=== PATIENT | female | born 1950 | race Caucasian/White ===

== ENCOUNTER → 2023-07-18 | Day surgery (SDC) | payer MEDICARE, BC ==
[2023-07-11 16:29] LABS: PRE OP HEMOGLOBIN 14.5 g/dL (12.0-16.0); RED CELL DISTRIBUTION WIDTH 13.3 % (11.5-14.5)
[2023-07-11 16:31] LABS: BASOPHILS # (AUTO) 0.1 X10'3 (0-0.2); EOSINOPHILS # (AUTO) 0.1 X10'3 (0-0.9); EOSINOPHILS % (AUTO) 1.5 % (0-6); LYMPHOCYTES # (AUTO) 3.2 X10'3 (1.1-4.8); LYMPHOCYTES % (AUTO) 40.5 % (21-51); MEAN CORPUSCULAR HEMOGLOBIN 30.7 PG (27.0-31.0); MEAN CORPUSCULAR HGB CONC 33.7 g/dL (33.0-36.5); MEAN CORPUSCULAR VOLUME 91.2 FL (78-98); MEAN PLATELET VOLUME 7.5 FL (7.4-10.4); MONOCYTES # (AUTO) 0.6 X10'3 (0-0.9); MONOCYTES % (AUTO) 7.5 % (2-12); NEUTROPHILS # (AUTO) 3.9 X10'3 (1.8-7.7); NEUTROPHILS % (AUTO) 49.5 % (42-75); PRE OP HEMATOCRIT 43.1 % (35.0-45.0); PRE OP PLATELET COUNT 343 X10'3 (140-440); RED BLOOD COUNT 4.73 X10'6 (4.20-5.60)
[2023-07-11 16:42] LABS: ALBUMIN 3.6 G/DL (3.4-5.0); ALBUMIN/GLOBULIN RATIO 1.1 (1.1-1.5); ALKALINE PHOSPHATASE 74 IU/L (46-116); BLOOD UREA NITROGEN 10 MG/DL (7-18); BUN/CREATININE RATIO 10.6 (10.0-20.0); CHLORIDE 104 MMOL/L (99-107); CREATININE 0.94 MG/DL (0.40-0.90); PRE OP ALT 22 U/L (30-65); PRE OP ANION GAP 8 (8-16); PRE OP AST 19 U/L (10-37); PRE OP BILIRUB, TOTAL 0.3 MG/DL (0.0-1.0); PRE OP GLUCOSE 101 MG/DL (70-104); PRE OP POTASSIUM 3.9 MMOL/L (3.4-5.1); PRE OP SODIUM 139 MMOL/L (135-145); TOTAL CARBON DIOXIDE 26.6 MMOL/L (24-32); TOTAL PROTEIN 6.9 G/DL (6.4-8.2); eGFR 59 ML/MIN
[2023-07-18] VITALS (8 sets, daily range): BP systolic 111–126; BP diastolic 60–70; PULSE 70–88; RESP 11–16; TEMP 98.1; O2SAT 94–99
[~2023-07-18] VITALS: Ht 157.5 cm; Wt 79.0 kg
[~2023-07-18] MED LIST: ASPI-611 PO; BUPIVAcaine/PF 2.5mg/ml (0.25%) 10ml vial ONE; BUPR300T86 PO; CHOL50004 PO; DILT180C76 PO; ESTR1TAB28 PO; EZET10TA48 PO; FEXO1TAB8 PO; INDOCYANINE GREEN 25 MG/10 ML VIAL IV ONE; LEVO75TA7 PO; LIDOcaine 1% 30ml preserv. free vial ONE; LOSA25TA41 PO; PITA4TAB2 PO; acetaminophen 1,000mg/100ml IV 100 ML IV ONE; cefazolin 2gm/D5W 100mL 100 ML IV ONE; dexamethasone sod phosphate 4mg/ml inj. ONE; famotidine 20mg tablet PO ONE; fentaNYL/PF 50MCG/1 ML 2ML syringe ONE; glycopyrrolate 0.2mg/ml inj ONE; meperidine/PF 25mg/ml syringe IV PRN; midazolam 1 mg/ML 2ml injection ONE; morphine 2 MG/ML inj. syringe IV PRN; morphine 4 MG/ML inj SYRINge IV PRN; neostigmine methylsulfate 1 MG/ML 10ml vial ONE; ondansetron/PF 4mg/2ml inj IV PRN; ondansetron/PF 4mg/2ml inj ONE; oxyCODONE/APAP 5-325mg tablet PO PRN; proCHLORperazine 10 MG/2 ml inj IV PRN; propofol inj 20 ML IV ONE; ringers solution, lacted 1,000 ML IV SCH; rocuronium 10mg/ml inj IV ONE; sevoflurane 250ml liquid IH ONE
--- NOTE | 2023-07-18 08:38 | NUR ---
Received from OR via [facility] , accompanied by Anesthesiologist TOMY and report given by Anesthesiolgist. PATIENT WITH 20G PIV IN RIGHT UE RUNNING LR AT 100. PATIENT WITH 3 ABDOMINAL BANDAIDS PRESENT WITH NO DRAINAGE. PATIENT VSS AT THIS TIME. Addendum: 07/18/23 at 0901 by Farhan Knutson RN, RN Amended: Links added.
--- NOTE | 2023-07-18 09:38 | NUR ---
ABLE TO SAFELY AMBULATE AND TRANSFER SELF. IV TAKEN OUT WITHOUT ANY COMPLICATIONS. ALL DISCHARGE INSTRUCTIONS COVERED WITH PATIENT AND ALL QUESTIONS ANSWERED. PATIENT TAKEN OUT VIA WHEELCHAIR TO PERSONAL VEHICLE WHERE FAMILY/FRIEND DROVE PATIENT HOME. DAUGHTER AND PATIENT RECEIVED DISCHARGE INSTRUCTIONS AND ALL QUESTIONS ANSWERED. NAUSEA AND PAIN TOLERABLE AT THIS TIME. Addendum: 07/18/23 at 0952 by Farhan Knutson RN, RN Amended: Links added.
== END | disposition home or self-care (01) ==
LOC: PAS 05:37
PROVIDERS: ATTEND Surgery
DX: K80.10 Calculus of gallbladder with chronic cholecystitis without obstruction (principal); K43.2 Incisional hernia without obstruction or gangrene; E03.9 Hypothyroidism, unspecified; E78.5 Hyperlipidemia, unspecified; I10 Essential (primary) hypertension; F41.9 Anxiety disorder, unspecified; F32.A Depression, unspecified; Z79.82 Long term (current) use of aspirin; Z79.899 Other long term (current) drug therapy; Z90.710 Acquired absence of both cervix and uterus; Z98.890 Other specified postprocedural states; Z72.89 Other problems related to lifestyle; Z86.73 Personal history of transient ischemic attack (TIA), and cerebral infarction without residual deficits; Z85.43 Personal history of malignant neoplasm of ovary; Z83.3 Family history of diabetes mellitus; Z80.7 Family history of other malignant neoplasms of lymphoid, hematopoietic and related tissues
CPT/HCPCS: 36415; 47563; 49593; 80053; 82948; 85025; J0131; J0690; J1100; J2175; J2250; J2405; J2704; J2710; J3010; J3490; J7030; J7120; Z7506; Z7508; Z7512; 88304; A4215; A4618; A7000